=== PATIENT | female | born 1955 ===

== ENCOUNTER 2017-02-20 09:41 | Outpatient (CLI) | payer MEDICARE, OTHER ==
--- NOTE | 2017-02-21 09:24 | Mammography Report ---
BILATERAL DIGITAL SCREENING MAMMOGRAM with CAD: 02/20/17 09:41:00 CLINICAL: Routine screening. COMPARISON:09/19/12 FINDINGS: The breasts are almost entirely fatty. No mass, architectural distortion or suspicious calcifications. IMPRESSION: No mammographic evidence of malignancy. BI-RADS CATEGORY: 1 - - Negative RECOMMENDATION: Routine mammographic screening in one year. COMMENT: Patient follow-up letters are generated by our [employer] application.
== END 2017-02-20 09:42 | disposition home or self-care (01) ==
LOC: SPVWC 09:41
DX: Z12.31 Encounter for screening mammogram for malignant neoplasm of breast (principal)
CPT/HCPCS: 77067; G0202